=== PATIENT | male | born 1945 | race Caucasian/White ===

== ENCOUNTER 2017-11-04 11:04 | Emergency (ER) | payer OTHER ==
[2017-11-04 11:18] VITALS: TEMP 97.1
--- NOTE | 2017-11-04 11:47 | ED ---
General Adult HPI - General Chief complaint: Shortness of Breath Stated complaint: Difficulty Breathing Time Seen by Provider: 11/04/17 11:24 Source: patient, RN notes reviewed Mode of arrival: ambulatory Limitations: no limitations - History of Present Illness Initial comments: 72-year-old male history of hypertension presenting for evaluation of dyspnea. Patient was diagnosed with pneumonia approximately 6 days ago, he was started on antibiotics and has failed to improve. He does report a mild cough although his chief complaint is dyspnea. He has had some central chest tightness and belching associated with this. Denies fever or chills. Denies URI symptoms. His mild cough is nonproductive. Denies lower extremity swelling or calf tenderness. Patient has remote history of tobacco use, states he quit approximately 15 years ago. No history of asthma or COPD. No history of CAD or PE - Related Data Home Medications Medication Instructions Recorded Confirmed Amoxic-Pot Clav 875-125Mg 1 tab PO Q12HR 11/04/17 11/04/17 [Augmentin 875-125] predniSONE 20 mg PO DAILY 11/04/17 11/04/17 Previous Rx's Medication Instructions Recorded Albuterol Inhaler [Ventolin Hfa 1 - 2 puff INHALATION Q4HR PRN #1 11/04/17 Inhaler] inhaler predniSONE 50 mg PO DAILY #5 tab 11/04/17 Allergies Allergy/AdvReac Type Severity Reaction Status Date / Time No Known Allergies Allergy Verified 11/04/17 11:22 Review of Systems ROS Statement: Those systems with pertinent positive or pertinent negative responses have been documented in the HPI. ROS Other: All systems not noted in ROS Statement are negative. Past Medical History Past Medical History: Diabetes Mellitus, Hyperlipidemia, Hypertension History of Any Multi-Drug Resistant Organisms: None Reported Additional Past Surgical History / Comment(s): bilateral knee Past Psychological History: Panic Disorder Smoking Status: Former smoker Past Alcohol Use History: Occasional Past Drug Use History: None Reported General Exam Limitations: no limitations General appearance: alert, in no apparent distress Head exam: Present: atraumatic, normocephalic Eye exam: Present: normal appearance, PERRL, EOMI ENT exam: Present: normal exam Neck exam: Present: normal inspection. Absent: tenderness, meningismus Respiratory exam: Present: normal lung sounds bilaterally, other (No wheezing, patient does have bronchospastic cough). Absent: respiratory distress, wheezes Cardiovascular Exam: Present: regular rate, normal rhythm GI/Abdominal exam: Present: soft. Absent: distended, tenderness, guarding Neurological exam: Present: alert, oriented X3, CN II-XII intact. Absent: motor sensory deficit Psychiatric exam: Present: normal affect, normal mood Skin exam: Present: warm, dry, intact. Absent: cyanosis, diaphoretic Course Vital Signs 11/04/17 11/04/17 11/04/17 11:12 13:29 13:31 Temperature 97.1 F L Pulse Rate 84 78 68 Respiratory 18 16 Rate Blood Pressure 161/82 148/81 O2 Sat by Pulse 99 100 Oximetry 11/04/17 13:40 Temperature Pulse Rate 77 Respiratory Rate Blood Pressure O2 Sat by Pulse Oximetry EKG Findings - EKG Comments: EKG Findings:: EKG: Normal sinus rhythm, left axis deviation, LVH, ventricular rate of 85, NM interval 152, QRS duration 74, QTC 421, no ST segment elevation or depression Medical Decision Making - Medical Decision Making 72-year-old male presenting with dyspnea and mild cough. Patient has no formal diagnosis COPD or asthma, however he was a long-time heavy smoker, quit about 15 years ago. On exam lungs are clear with bronchospastic cough. EKG shows no definitive signs of ischemia, workup including CBC, CMP, troponin BMP is unremarkable, d-dimer is mildly elevated at 0.51, there is concern for PE, CT angiography is obtained this is negative for pulmonary embolism. Chest x-ray shows no focal pneumonia, there is some hyperinflation consistent with COPD. I do believe most the patient's symptoms are related to his previous tobacco use and an episode of bronchitis, however the central chest tightness is concerning , I would prefer the patient be observed for cardiology evaluations show cardiac enzymes, he declines stating he would prefer outpatient management he will return with any worsening or changing chest pain. He is given a course of steroids and albuterol, he will complete his antibiotic course. - Lab Data Result diagrams: 11/04/17 12:00 11/04/17 12:00 Lab Results 11/04/17 11/04/17 11/04/17 Range/Units 12:00 12:00 12:00 WBC 8.6 (3.8-10.6) k/uL RBC 4.96 (4.30-5.90) m/uL Hgb 14.5 (13.0-17.5) gm/dL Hct 42.1 (39.0-53.0) % MCV 85.0 (80.0-100.0) fL MCH 29.3 (25.0-35.0) pg MCHC 34.5 (31.0-37.0) g/dL RDW 13.5 (11.5-15.5) % Plt Count 235 (150-450) k/uL Neutrophils % 67 % Lymphocytes % 19 % Monocytes % 7 % Eosinophils % 6 % Basophils % 1 % Neutrophils # 5.8 (1.3-7.7) k/uL Lymphocytes # 1.6 (1.0-4.8) k/uL Monocytes # 0.6 (0-1.0) k/uL Eosinophils # 0.5 (0-0.7) k/uL Basophils # 0.1 (0-0.2) k/uL PT (9.0-12.0) sec INR (<1.2) APTT (22.0-30.0) sec D-Dimer (<0.60) mg/L FEU Sodium 141 (137-145) mmol/L Potassium 4.4 (3.5-5.1) mmol/L Chloride 101 (98-107) mmol/L Carbon Dioxide 27 (22-30) mmol/L Anion Gap 13 mmol/L BUN 26 H (9-20) mg/dL Creatinine 1.01 (0.66-1.25) mg/dL Est GFR (CKD-EPI)AfAm 86 (>60 ml/min/1.73 sqM) Est GFR (CKD-EPI)NonAf 74 (>60 ml/min/1.73 sqM) Glucose 206 H (74-99) mg/dL Calcium 9.5 (8.4-10.2) mg/dL Magnesium 1.7 (1.6-2.3) mg/dL Total Bilirubin 0.4 (0.2-1.3) mg/dL AST 21 (17-59) U/L ALT 23 (21-72) U/L Alkaline Phosphatase 70 (38-126) U/L Total Creatine Kinase 58 (55-170) U/L CK-MB (CK-2) 1.4 (0.0-2.4) ng/mL CK-MB (CK-2) Rel Index 2.4 Troponin I <0.012 (0.000-0.034) ng/mL NT-Pro-B Natriuret Pep pg/mL Total Protein 7.2 (6.3-8.2) g/dL Albumin 4.2 (3.5-5.0) g/dL 11/04/17 11/04/17 Range/Units 12:00 12:00 WBC (3.8-10.6) k/uL RBC (4.30-5.90) m/uL Hgb (13.0-17.5) gm/dL Hct (39.0-53.0) % MCV (80.0-100.0) fL MCH (25.0-35.0) pg MCHC (31.0-37.0) g/dL RDW (11.5-15.5) % Plt Count (150-450) k/uL Neutrophils % % Lymphocytes % % Monocytes % % Eosinophils % % Basophils % % Neutrophils # (1.3-7.7) k/uL Lymphocytes # (1.0-4.8) k/uL Monocytes # (0-1.0) k/uL Eosinophils # (0-0.7) k/uL Basophils # (0-0.2) k/uL PT 10.0 (9.0-12.0) sec INR 1.0 (<1.2) APTT 21.9 L (22.0-30.0) sec D-Dimer 0.51 (<0.60) mg/L FEU Sodium (137-145) mmol/L Potassium (3.5-5.1) mmol/L Chloride (98-107) mmol/L Carbon Dioxide (22-30) mmol/L Anion Gap mmol/L BUN (9-20) mg/dL Creatinine (0.66-1.25) mg/dL Est GFR (CKD-EPI)AfAm (>60 ml/min/1.73 sqM) Est GFR (CKD-EPI)NonAf (>60 ml/min/1.73 sqM) Glucose (74-99) mg/dL Calcium (8.4-10.2) mg/dL Magnesium (1.6-2.3) mg/dL Total Bilirubin (0.2-1.3) mg/dL AST (17-59) U/L ALT (21-72) U/L Alkaline Phosphatase (38-126) U/L Total Creatine Kinase (55-170) U/L CK-MB (CK-2) (0.0-2.4) ng/mL CK-MB (CK-2) Rel Index Troponin I (0.000-0.034) ng/mL NT-Pro-B Natriuret Pep 42 pg/mL Total Protein (6.3-8.2) g/dL Albumin (3.5-5.0) g/dL Disposition Clinical Impression: Acute bronchitis Disposition: HOME SELF-CARE Condition: Fair Instructions: Acute Bronchitis (ED) Prescriptions: Albuterol Inhaler [Ventolin Hfa Inhaler] 1 - 2 puff INHALATION Q4HR PRN #1 inhaler PRN Reason: Shortness Of Breath predniSONE 50 mg PO DAILY #5 tab Referrals: [facility],Clinic [Primary Care Provider] - 1-2 days Time of Disposition: 14:53
[2017-11-04 12:11] LABS: Basophils # (A) 0.1 k/uL (0-0.2); Basophils % (A) 1 %; Eosinophils # (A) 0.5 k/uL (0-0.7); Eosinophils % (A) 6 %; HCT 42.1 % (39.0-53.0); HGB 14.5 gm/dL (13.0-17.5); Lymphocytes # (A) 1.6 k/uL (1.0-4.8); Lymphocytes % (A) 19 %; MCH 29.3 pg (25.0-35.0); MCHC 34.5 g/dL (31.0-37.0); Mean Platelet Volume 7.6; Monocytes # (A) 0.6 k/uL (0-1.0); Monocytes % (A) 7 %; Neutrophils # (A) 5.8 k/uL (1.3-7.7); Neutrophils % (A) 67 %; Platelet Count 235 k/uL (150-450); RBC 4.96 m/uL (4.30-5.90); RDW 13.5 % (11.5-15.5); WBC 8.6 k/uL (3.8-10.6)
--- NOTE | 2017-11-04 12:16 | XR ---
EXAMINATION TYPE: XR chest 2V DATE OF EXAM: 11/04/2017 COMPARISON: NONE HISTORY: Difficulty breathing, shortness of breath TECHNIQUE: Frontal and lateral views of the chest are obtained. FINDINGS: There is no focal air space opacity, pleural effusion, or pneumothorax seen. The cardiac silhouette size is within normal limits. There are overlying cardiac leads. Suspect a spinal curvatur e may be present. Prominent lung volumes may be indicative of underlying COPD. The osseous structures are intact. IMPRESSION: No acute cardiopulmonary process.
[2017-11-04 12:19] LABS: Albumin 4.2 g/dL (3.5-5.0); Calcium 9.5 mg/dL (8.4-10.2); Magnesium 1.7 mg/dL (1.6-2.3); Potassium 4.4 mmol/L (3.5-5.1); Total Bilirubin 0.4 mg/dL (0.2-1.3); Total Protein 7.2 g/dL (6.3-8.2)
[2017-11-04 12:30] LABS: Creatine Kinase 58 U/L (55-170); D-Dimer 0.51 mg/L FEU (<0.60)
[2017-11-04 12:40] LABS: Partial Thromboplastin Time 21.9 sec (22.0-30.0)
[2017-11-04 12:43] LABS: Creatine Kinase MB 1.4 ng/mL (0.0-2.4); Troponin I <0.012 ng/mL (0.000-0.034)
[2017-11-04] MEDS ORDERED: DEXAMETHASONE SOD PHOSPHATE 10 MG/ML 1 ML VIAL IV STA (12:43)
[2017-11-04] MEDS ORDERED: IPRATROPIUM-ALBUTEROL 3 ML NEB INHALATION STA (12:43)
[2017-11-04] MEDS ORDERED: RX INFO: IV CONTRAST WAS GIVEN 1 EACH MISC MISCELLANE PRN (13:08)
[2017-11-04 13:30] VITALS: RESP 16
--- NOTE | 2017-11-04 14:33 | CT ---
EXAMINATION TYPE: CT angio chest DATE OF EXAM: 11/04/2017 COMPARISON: NONE HISTORY: Patient complains of difficulty breathing. Chest pain per order CT DLP: 552 mGycm. Automated Exposure Control for Dose Reduction was Utilized. CONTRAST: CTA scan of the thorax is performed with IV Contrast, patient injected with 100 mL of Isovue 370, pul monary embolism protocol. MIP Images are created on CT scanner and reviewed. FINDINGS: LUNGS: There is posterior medial left basilar linear scarring. There is mild biapical pleural/parench ymal scarring. There is no suspicious consolidation or groundglass opacity. There is no pleural effus ion or pneumothorax seen bilaterally. Tracheobronchial tree is patent. MEDIASTINUM: There is satisfactory enhancement of the pulmonary artery and its branches, there is no CT evidence for pulmonary embolism. There are no greater than 1 cm hilar or mediastinal lymph nodes. No cardiomegaly or pericardial effusion is seen. There is coronary artery calcification is seen wh ich is noted marker for coronary artery disease. This is fairly severe in the visualized LAD. Ascendi ng aorta measures up to 3.9 cm diameter axial image 73. There is moderate mixed plaque in the aortic arch extending into descending thoracic aorta where more moderate to severe peripheral noncalcified p laque is present. OTHER: Dextroconvex scoliosis centered in the midthoracic spine is present. There is moderate multile jena anterior and lateral spurring in the thoracic spine. Slight low dense nodular thickening to both adrenal glands favors benign hyperplasia IMPRESSION: No CT evidence for acute pulmonary embolism. No suspicious acute pulmonary process.
[2017-11-04 15:19] VITALS: BP 149/80; PULSE 85
== END 2017-11-04 15:29 | disposition home or self-care (01) ==
LOC: EC 11:04
DX: J20.9 Acute bronchitis, unspecified (principal); Z87.891 Personal history of nicotine dependence; Z79.899 Other long term (current) drug therapy
CPT/HCPCS: 36415; 94640; 93005; 85379; 83880; 80053; 82550; 82553; 83735; 84484; 85025; 85610; 85730; 71046; 71275; 99285; 96374; J1100; Q9967

== ENCOUNTER 2018-10-04 08:18 | Emergency (ER) | payer OTHER ==
[2018-10-04 08:28] VITALS: PULSE 86; RESP 18; TEMP 98
--- NOTE | 2018-10-04 08:59 | ED ---
General Adult HPI - General Chief complaint: Neuro Symptoms/Deficit Stated complaint: Arm/Hand Numbness, Confused Time Seen by Provider: 10/04/18 08:40 Source: patient, RN notes reviewed Mode of arrival: wheelchair Limitations: no limitations - History of Present Illness Initial comments: Patient is a pleasant 73-year-old male presenting to the emergency department with left arm problems. Patient last known well was therefore went to bed last night. Patient was somewhat restless throughout the night. Patient awoke around 7:30 this morning and had difficulty using his left arm. Patient also had some difficulty with walking and did feel confused. Symptoms have now resolved and patient is symptom-free. No history of similar symptoms previousl y. No headache. - Related Data Home Medications Medication Instructions Recorded Confirmed Cyanocobalamin (Vitamin B-12) 1,000 mcg PO DAILY 10/04/18 10/04/18 [Vitamin B-12] Lisinopril [Zestril] 20 mg PO DAILY 10/04/18 10/04/18 metFORMIN HCL [Glucophage] 500 mg PO BID 10/04/18 10/04/18 Allergies Allergy/AdvReac Type Severity Reaction Status Date / Time No Known Allergies Allergy Verified 10/04/18 08:42 Review of Systems ROS Statement: Those systems with pertinent positive or pertinent negative responses have been documented in the HPI. ROS Other: All systems not noted in ROS Statement are negative. Constitutional: Denies: fever Eyes: Denies: eye pain ENT: Denies: ear pain Respiratory: Denies: cough Cardiovascular: Denies: chest pain Endocrine: Denies: fatigue Gastrointestinal: Denies: abdominal pain Genitourinary: Denies: dysuria Musculoskeletal: Denies: back pain Skin: Denies: rash Neurological: Reports: as per HPI, weakness, confusion. Denies: headache Past Medical History Past Medical History: Diabetes Mellitus, Hyperlipidemia, Hypertension History of Any Multi-Drug Resistant Organisms: None Reported Additional Past Surgical History / Comment(s): bilateral knee Past Psychological History: Panic Disorder Smoking Status: Former smoker Past Alcohol Use History: Occasional Past Drug Use History: None Reported General Exam Limitations: no limitations General appearance: alert, in no apparent distress Head exam: Present: atraumatic Eye exam: Present: normal appearance, PERRL, EOMI ENT exam: Present: normal oropharynx Neck exam: Present: normal inspection Respiratory exam: Present: normal lung sounds bilaterally Cardiovascular Exam: Present: regular rate, normal rhythm GI/Abdominal exam: Present: soft. Absent: tenderness Extremities exam: Present: normal inspection. Absent: pedal edema, calf tenderness Neurological exam: Present: alert, oriented X3, CN II-XII intact. Absent: motor sensory deficit Expanded Neurological exam: Present: protecting the airway Patient oriented to: Present: person, place, time Speech: Present: fluid speech Cranial nerves: EOM's Intact: Normal, Facial Sensation: Normal Cerebellar function: Finger to Nose: Normal Sensory exam: Upper Extremity Light Touch: Normal, Lower Extremity Light Touch: Normal Motor strength exam: RUE: 5, LUE: 5, RLE: 5, LLE: 5 Eye Response: (4) open spontaneously Motor Response: (6) obeys commands Verbal Response: (5) oriented Psychiatric exam: Present: normal affect, normal mood Skin exam: Present: normal color Course Vital Signs 10/04/18 08:23 Temperature 98.0 F Pulse Rate 86 Respiratory 18 Rate Blood Pressure 222/100 O2 Sat by Pulse 98 Oximetry EKG Findings - EKG Comments: EKG Findings:: Normal sinus rhythm 78. [place] 156. QRS 78. QT 364. QTC 414. Left axis. Normal QRS. No acute ST change. Medical Decision Making - Medical Decision Making Patient reevaluated and resting comfortably in bed. Patient remained symptom- free. Case was discussed with Dr. Nicholas at [facility], who will accept transfer. - Lab Data Result diagrams: 10/04/18 08:40 10/04/18 08:40 Lab Results 10/04/18 10/04/18 10/04/18 Range/Units 08:40 08:40 08:40 WBC 7.7 (3.8-10.6) k/uL RBC 4.87 (4.30-5.90) m/uL Hgb 14.3 (13.0-17.5) gm/dL Hct 41.9 (39.0-53.0) % MCV 86.0 (80.0-100.0) fL MCH 29.4 (25.0-35.0) pg MCHC 34.1 (31.0-37.0) g/dL RDW 13.3 (11.5-15.5) % Plt Count 186 (150-450) k/uL Neutrophils % 62 % Lymphocytes % 23 % Monocytes % 7 % Eosinophils % 5 % Basophils % 1 % Neutrophils # 4.8 (1.3-7.7) k/uL Lymphocytes # 1.8 (1.0-4.8) k/uL Monocytes # 0.5 (0-1.0) k/uL Eosinophils # 0.4 (0-0.7) k/uL Basophils # 0.1 (0-0.2) k/uL PT 9.8 (9.0-12.0) sec INR 0.9 (<1.2) APTT 22.6 (22.0-30.0) sec Sodium 137 (137-145) mmol/L Potassium 5.0 (3.5-5.1) mmol/L Chloride 105 (98-107) mmol/L Carbon Dioxide 22 (22-30) mmol/L Anion Gap 10 mmol/L BUN 31 H (9-20) mg/dL Creatinine 1.27 H (0.66-1.25) mg/dL Est GFR (CKD-EPI)AfAm 64 (>60 ml/min/1.73 sqM) Est GFR (CKD-EPI)NonAf 56 (>60 ml/min/1.73 sqM) Glucose 222 H (74-99) mg/dL Calcium 9.6 (8.4-10.2) mg/dL Total Bilirubin 0.5 (0.2-1.3) mg/dL AST 20 (17-59) U/L ALT 30 (21-72) U/L Alkaline Phosphatase 83 (38-126) U/L Troponin I (0.000-0.034) ng/mL Total Protein 7.6 (6.3-8.2) g/dL Albumin 4.3 (3.5-5.0) g/dL 10/04/18 Range/Units 08:40 WBC (3.8-10.6) k/uL RBC (4.30-5.90) m/uL Hgb (13.0-17.5) gm/dL Hct (39.0-53.0) % MCV (80.0-100.0) fL MCH (25.0-35.0) pg MCHC (31.0-37.0) g/dL RDW (11.5-15.5) % Plt Count (150-450) k/uL Neutrophils % % Lymphocytes % % Monocytes % % Eosinophils % % Basophils % % Neutrophils # (1.3-7.7) k/uL Lymphocytes # (1.0-4.8) k/uL Monocytes # (0-1.0) k/uL Eosinophils # (0-0.7) k/uL Basophils # (0-0.2) k/uL PT (9.0-12.0) sec INR (<1.2) APTT (22.0-30.0) sec Sodium (137-145) mmol/L Potassium (3.5-5.1) mmol/L Chloride (98-107) mmol/L Carbon Dioxide (22-30) mmol/L Anion Gap mmol/L BUN (9-20) mg/dL Creatinine (0.66-1.25) mg/dL Est GFR (CKD-EPI)AfAm (>60 ml/min/1.73 sqM) Est GFR (CKD-EPI)NonAf (>60 ml/min/1.73 sqM) Glucose (74-99) mg/dL Calcium (8.4-10.2) mg/dL Total Bilirubin (0.2-1.3) mg/dL AST (17-59) U/L ALT (21-72) U/L Alkaline Phosphatase (38-126) U/L Troponin I <0.012 (0.000-0.034) ng/mL Total Protein (6.3-8.2) g/dL Albumin (3.5-5.0) g/dL - Radiology Data Radiology results: report reviewed (Computed tomography scan of the head reveals no acute process), image reviewed (Chest x-ray shows no acute process) Disposition Clinical Impression: Transient cerebral ischemia Disposition: OTHER INSTITUTION NOT DEFINED Is patient prescribed a controlled substance at d/c from ED?: No Referrals: [facility],Clinic [Primary Care Provider] - 1-2 days Time of Disposition: 10:25 - Out of Hospital Transfer - Req. Specs Out of Hospital Transfer - Requested Specifics: Other Emergency Center
[2018-10-04 09:13] LABS: Basophils # (A) 0.1 k/uL (0-0.2); Basophils % (A) 1 %; Eosinophils # (A) 0.4 k/uL (0-0.7); Eosinophils % (A) 5 %; HCT 41.9 % (39.0-53.0); HGB 14.3 gm/dL (13.0-17.5); Lymphocytes # (A) 1.8 k/uL (1.0-4.8); Lymphocytes % (A) 23 %; MCH 29.4 pg (25.0-35.0); MCHC 34.1 g/dL (31.0-37.0); Mean Platelet Volume 7.6; Monocytes # (A) 0.5 k/uL (0-1.0); Monocytes % (A) 7 %; Neutrophils # (A) 4.8 k/uL (1.3-7.7); Neutrophils % (A) 62 %; Platelet Count 186 k/uL (150-450); RBC 4.87 m/uL (4.30-5.90); RDW 13.3 % (11.5-15.5); WBC 7.7 k/uL (3.8-10.6)
[2018-10-04 09:22] LABS: INR 0.9 (<1.2); Partial Thromboplastin Time 22.6 sec (22.0-30.0); Prothrombin Time 9.8 sec (9.0-12.0)
--- NOTE | 2018-10-04 09:22 | CT ---
EXAMINATION TYPE: CT brain wo con DATE OF EXAM: 10/04/2018 COMPARISON: None HISTORY: left side weakness CT DLP: 1016.[address] of the brain was performed. The ventricles, basal cisterns and sulci overlying the cerebral convexities demonstrate mild enlargem ent. There is no evidence for intracranial hemorrhage or sulcal effacement. There is decreased attenuation about the periventricular white matter and deep white matter of both c erebral hemispheres, compatible with chronic small vessel ischemia. Differential diagnosis does inclu de demyelination. No mass effects are seen.No midline shift. Osseous calvarium is intact. If symptoms persist consider MRI. IMPRESSION: 1. Age related atrophic and chronic small vessel ischemic change without acute intracranial process s een at this time.
[2018-10-04 09:26] LABS: Albumin 4.3 g/dL (3.5-5.0); Calcium 9.6 mg/dL (8.4-10.2); Total Bilirubin 0.5 mg/dL (0.2-1.3); Total Protein 7.6 g/dL (6.3-8.2)
--- NOTE | 2018-10-04 09:30 | XR ---
EXAMINATION TYPE: XR chest 2V DATE OF EXAM: 10/04/2018 COMPARISON: Prior chest x-ray 11/04/2017 HISTORY: Altered mental status TECHNIQUE: Frontal and lateral views of the chest are obtained. FINDINGS: There is no focal air space opacity, pleural effusion, or pneumothorax seen. The cardiac silhouette size is within normal limits. The osseous structures are intact. The aorta is dense. IMPRESSION: No acute cardiopulmonary process.
[2018-10-04] MEDS ORDERED: ASPIRIN 81 MG PO STA (10:44)
[2018-10-04 11:56] VITALS: BP 170/93
== END 2018-10-04 11:55 | disposition short-term general hospital (02) ==
LOC: EC 08:18
DX: G45.9 Transient cerebral ischemic attack, unspecified (principal); E11.9 Type 2 diabetes mellitus without complications; I10 Essential (primary) hypertension; Z79.84 Long term (current) use of oral hypoglycemic drugs; Z79.899 Other long term (current) drug therapy; Z87.891 Personal history of nicotine dependence
CPT/HCPCS: 36415; 70450; 71046; 80053; 84484; 85025; 85610; 85730; 93005; 99285

== ENCOUNTER 2018-12-21 18:36 | Emergency (ER) | payer OTHER ==
[2018-12-21 19:53] VITALS: RESP 18
[2018-12-21] MEDS ORDERED: CEPHALEXIN 500MG STARTER PACK 4 CAP BTL PO STA (22:01)
--- NOTE | 2018-12-21 22:03 | ED ---
Skin/Abscess/FB HPI - General Chief complaint: Skin/Abscess/Foreign Body Stated complaint: Infection Time Seen by Provider: 12/21/18 21:39 Source: patient Mode of arrival: ambulatory Limitations: no limitations - History of Present Illness Initial comments: 73-year-old male patient presents to the emergency department today for evaluation of redness and discomfort to a right neck incision. Patient states approximately 6 weeks ago he had a right carotid endarterectomy after having a stroke. Patient states 2 days ago he started noticing a prickling sensation to the incision. States his been monitoring it does seem to be Becoming more red. Denies any swelling or drainage from the area. Denies any difficulty swallowing. Denies any fever or chills with this. Patient states he missed his last appointment with his surgeon but does have an appointment with his primary care physician on Thursday. He denies any dizziness or weakness. Patient denies any recent rash, shortness breath, chest pain, abdominal pain, nausea, vomiting, diarrhea, constipation, back pain, numbness, tingling, hematuria, dysuria, urinary urgency, urinary frequency, headache, visual changes, or any other complaints. - Related Data Home Medications Medication Instructions Recorded Confirmed Cyanocobalamin (Vitamin B-12) 1,000 mcg PO DAILY 10/04/18 10/04/18 [Vitamin B-12] Lisinopril [Zestril] 20 mg PO DAILY 10/04/18 10/04/18 metFORMIN HCL [Glucophage] 500 mg PO BID 10/04/18 10/04/18 Previous Rx's Medication Instructions Recorded Cephalexin [Keflex] 500 mg PO Q6HR #40 cap 12/21/18 Allergies Allergy/AdvReac Type Severity Reaction Status Date / Time No Known Allergies Allergy Verified 12/21/18 19:53 Review of Systems ROS Statement: Those systems with pertinent positive or pertinent negative responses have been documented in the HPI. ROS Other: All systems not noted in ROS Statement are negative. Past Medical History Past Medical History: CVA/TIA, Diabetes Mellitus, Hyperlipidemia, Hypertension History of Any Multi-Drug Resistant Organisms: None Reported Additional Past Surgical History / Comment(s): bilateral knee, right carotid due to CVA Past Psychological History: Panic Disorder Smoking Status: Former smoker Past Alcohol Use History: Occasional Past Drug Use History: None Reported General Exam Limitations: no limitations General appearance: alert, in no apparent distress, other (Physical well- developed, well-nourished elderly male patient in no acute distress. Vital signs upon presentation are temperature 98.1F, pulse 94, respirations 18, blood pressure 151/78, pulse ox 100% on room air.) Eye exam: Present: normal appearance, PERRL, EOMI. Absent: scleral icterus, conjunctival injection, periorbital swelling ENT exam: Present: normal exam, normal oropharynx, mucous membranes moist Neck exam: Present: other (Patient has well approximated incision to the right lateral neck. There is mild surrounding erythema. No drainage. No tenderness. No swelling noted.) Respiratory exam: Present: normal lung sounds bilaterally. Absent: respiratory distress, wheezes, rales, rhonchi, stridor Cardiovascular Exam: Present: regular rate, normal rhythm, normal heart sounds. Absent: systolic murmur, diastolic murmur, rubs, gallop, clicks Neurological exam: Present: alert, oriented X3, CN II-XII intact Psychiatric exam: Present: normal affect, normal mood Skin exam: Present: warm, dry, intact, normal color. Absent: rash Course Vital Signs 12/21/18 12/21/18 19:46 22:13 Temperature 98.1 F 98.2 F Pulse Rate 94 87 Respiratory 18 18 Rate Blood Pressure 151/78 141/93 O2 Sat by Pulse 100 100 Oximetry Medical Decision Making - Medical Decision Making 73-year-old male patient presented to the emergency department today for evaluation of redness and discomfort to the right neck incision. Physical examination did reveal well approximated right lateral neck incision. No drainage. No swelling. There was some mild surrounding erythema. Patient is afebrile, vital signs are normal. We will treat for possible cellulitis with Keflex. He is instructed to follow-up with his primary care physician or his surgeon for recheck in 1-2 days. Return parameters were discussed in detail. He verbalizes understanding and agrees with this plan. Disposition Clinical Impression: Infection of superficial incisional surgical site after procedure Disposition: HOME SELF-CARE Condition: Good Instructions (If sedation given, give patient instructions): Cellulitis (ED) Additional Instructions: Complete antibiotic prescription in full. Follow up with your surgeon or primary care physician in 1-2 days. Return to the emergency department for any new, worsening, or concerning symptoms. Prescriptions: Cephalexin [Keflex] 500 mg PO Q6HR #40 cap Is patient prescribed a controlled substance at d/c from ED?: No Referrals: [facility],Clinic [Primary Care Provider] - 1-2 days Time of Disposition: 22:02
[2018-12-21 22:15] VITALS: BP 141/93; PULSE 87; TEMP 98.2
== END 2018-12-21 22:17 | disposition home or self-care (01) ==
LOC: EC 18:36
DX: T81.41XA Infection following a procedure, superficial incisional surgical site, initial encounter (principal); E11.9 Type 2 diabetes mellitus without complications; I10 Essential (primary) hypertension; Z79.84 Long term (current) use of oral hypoglycemic drugs; Z79.899 Other long term (current) drug therapy; Z87.891 Personal history of nicotine dependence; Z86.73 Personal history of transient ischemic attack (TIA), and cerebral infarction without residual deficits; Z98.890 Other specified postprocedural states
CPT/HCPCS: 99283

== ENCOUNTER → 2019-02-23 | Outpatient (CLI) | payer OTHER ==
--- NOTE | 2019-03-02 11:14 | P.ARTDOP ---
Arterial Doppler LOWER EXTREMITY ARTERIAL DOPPLER: DATE OF SERVICE: 02/23/2019 Reason for study: Bilateral calf claudication. Doppler waveforms: Multiphasic bilaterally throughout. Pulse volume recording: []. Pressure gradients: Below the knee on the right. Ankle-brachial indices: 0.82 on the right and 0.96 on the left. Toe pressures: [] on the right, [] on the left Impression: Mild right fem-pop disease and normal on the left.
== END | disposition home or self-care (01) ==
LOC: RADUSWWP 12:02
DX: I87.8 Other specified disorders of veins (principal)
CPT/HCPCS: 93922

== ENCOUNTER → 2019-06-02 | Outpatient (CLI) | payer OTHER ==
--- NOTE | 2019-06-02 12:57 | US ---
EXAMINATION TYPE: US kidneys/renal and bladder DATE OF EXAM: 06/02/2019 COMPARISON: NONE CLINICAL HISTORY: N18.3 Chronic Kidney Disease Stage III. CKD stage 3 EXAM MEASUREMENTS: Right Kidney: 8.9 x 5.4 x 4.9 cm Left Kidney: 10.2 x 5.2 x 5.3 cm Right Kidney: measures small in size, 1.7 x 2.2 x 1.6cm isoechoic area mid pole, probably prominent c olumn of blayne, 1.0cm cortical cyst mid pole Left Kidney: 0.4cm echogenic focus mid pole, 1.7 x 1.5 x 1.5cm exophytic cyst superior pole Bladder: not fully distended Bilateral Jets seen: right jet not seen There is no evidence for hydronephrosis at this point in time. No nephrolithiasis is seen. No chloe s are identified. The urinary bladder is anechoic. Bilateral ureteral jets are seen. IMPRESSION: 1. Probable right renal, Blayne however this there is vascular and isoechoic solid renal mass is a po ssibility. CT with contrast would be recommended. If this patient cannot undergo CT abdomen w con MRI with contrast would be recommended pending GFR. 2. Benign-appearing 1.7 cm exophytic left renal cyst and 4 mm nonobstructing left renal calculus.
== END | disposition home or self-care (01) ==
LOC: RADUSWWP 12:11
PROVIDERS: ATTEND Internal Medicine
DX: N28.1 Cyst of kidney, acquired (principal); N20.0 Calculus of kidney; N18.3 Chronic kidney disease, stage 3 (moderate)
CPT/HCPCS: 76770

== ENCOUNTER → 2019-10-11 | Outpatient (CLI) | payer OTHER ==
--- NOTE | 2019-10-11 10:56 | CT ---
EXAMINATION TYPE: CT abdomen pelvis wo con DATE OF EXAM: 10/11/2019 COMPARISON: Renal ultrasound dated 06/02/2019 HISTORY: Prostate cancer CT DLP: 954 mGycm Automated exposure control for dose reduction was used. TECHNIQUE: Helical acquisition of images was performed from the lung bases through the pelvis. FINDINGS: Evaluation of the hollow and solid viscera is limited without contrast. LUNG BASES: Minimal atelectasis of the lung bases LIVER/GB: Unremarkable unenhanced morphology of the liver. No cholelithiasis present that is radiopaq ue on CT. PANCREAS: No significant abnormality is seen. SPLEEN: No splenomegaly. ADRENALS: Very mild uniform nodularity of the bilateral adrenal glands, likely on the basis of adrena l gland hyperplasia. KIDNEYS: The previously seen probable column of Blayne of the right kidney is suboptimally evaluated without contrast. Nonobstructing right lower poler 4 mm calculus is seen. 2 mm left midpole nonobstru cting renal calculus. Exophytic left midpole 9 mm renal cyst. Minimal nonspecific bilateral perinephr ic fat stranding. No hydronephrosis of either kidney. FREE AIR: No free air is visualized ADENOPATHY: No greater than 1 cm short axis lymph node in the abdomen nor pelvis. REPRODUCTIVE ORGANS: Prostate gland is heterogenous and enlarged measuring 5.6 cm in transverse dimen michelle. OSSEOUS STRUCTURES: Moderate to severe arthropathy of the bilateral hips. Mild multilevel degenerati ve change of the spine. There are few very punctate sclerotic foci of the pelvis marked on image 67 i n the right iliac bone, image 62 in the left iliac bone, and image 60 in the right iliac bone that co uld represent small bone islands or less likely metastasis. Moderate overall degenerative change of t he spine is seen. BOWEL: There is diffuse thickening of the sigmoid colon with numerous colonic diverticula and no per icolonic fat stranding. Few epiploic appendages without fat stranding are seen of the anterior sigmoi d colon on image 61 and 60. Oral contrast does not progress into the majority the colon, limiting regine luation. Appendix is retrocecal, air-filled and within normal limits of size. No dilated large or sma ll bowel. OTHER: The right inguinal ring is fat filled and patulous. Moderate atherosclerosis of the abdominal aorta and its branches. Small fat filled periumbilical hernia. IMPRESSION: 1. NO DEFINITIVE EVIDENCE OF METASTASIS IN THE ABDOMEN OR PELVIS. NO ADENOPATHY. THERE ARE FEW VERY P UNCTATE 1 TO 2 MM SCLEROTIC FOCI OF THE ILIAC BONES (3 IN NUMBER) THAT MAY REPRESENT SMALL BONE ISLAN DS OR LEFT LIKELY VERY EARLY METASTASIS. NO PRIOR IMAGING AVAILABLE FOR COMPARISON OF STABILITY. 2. DIFFUSE THICKENING OF THE SIGMOID COLON THAT COULD BE ON THE BASIS OF CHRONIC DIVERTICULITIS/COLIT IS HOWEVER COLONOSCOPY IS RECOMMENDED IF NOT RECENTLY PERFORMED TO EXCLUDE SUBMUCOSAL NEOPLASM. 3. THE PREVIOUSLY SEEN PROBABLE PROMINENT, BLAYNE IN THE RIGHT KIDNEY ON THE ULTRASOUND OF 06/02/2019 IS SUBOPTIMALLY EVALUATED WITHOUT CONTRAST. BILATERAL NONOBSTRUCTING RENAL CALCULI AND BENIGN-APPEARI NG LEFT RENAL CYSTS ARE SEEN.
--- NOTE | 2019-10-11 14:47 | NM ---
EXAMINATION TYPE: NM bone scan whole body DATE OF EXAM: 10/11/2019 COMPARISON: CT same date HISTORY: Prostate carcinoma Delayed whole-body scanning was performed following the injection of 23.8 mCi Tc 99m MDP. Images acq uired 4.5 hours post injection. FINDINGS: Soft tissue uptake is normal. Uptake within the feet, ankles, knees, wrists, elbows, shoulders, khan oclavicular joints, hips, spine is likely degenerative. No areas of abnormal increased or decreased r adiopharmaceutical uptake to suggest metastasis. IMPRESSION: Arthropathy changes. Degenerative disc changes. No evident metastasis.
== END | disposition home or self-care (01) ==
LOC: RADNMMAIN 08:55
PROVIDERS: ATTEND Urology
DX: N28.1 Cyst of kidney, acquired (principal); N20.0 Calculus of kidney; K57.32 Diverticulitis of large intestine without perforation or abscess without bleeding; C61 Malignant neoplasm of prostate
CPT/HCPCS: 82565; 84520; 74176; 36415; 78306; A9503

== ENCOUNTER → 2020-02-09 | Outpatient (CLI) | payer OTHER ==
[2020-02-09 13:01] LABS: Basophils # (A) 0.1 k/uL (0-0.2); Basophils % (A) 1 %; Eosinophils # (A) 0.5 k/uL (0-0.7); Eosinophils % (A) 7 %; HCT 40.2 % (39.0-53.0); HGB 12.8 gm/dL (13.0-17.5); Lymphocytes # (A) 1.5 k/uL (1.0-4.8); Lymphocytes % (A) 20 %; MCH 27.8 pg (25.0-35.0); MCHC 31.9 g/dL (31.0-37.0); MCV 87.1 fL (80.0-100.0); Mean Platelet Volume 8.5; Monocytes # (A) 0.4 k/uL (0-1.0); Monocytes % (A) 5 %; Neutrophils # (A) 4.9 k/uL (1.3-7.7); Neutrophils % (A) 65 %; Platelet Count 220 k/uL (150-450); RBC 4.62 m/uL (4.30-5.90); RDW 13.3 % (11.5-15.5); WBC 7.5 k/uL (3.8-10.6)
[2020-02-09 13:15] LABS: Calcium 9.8 mg/dL (8.4-10.2)
[2020-02-09 14:11] LABS: Potassium 6.6 mmol/L (3.5-5.1)
== END | disposition home or self-care (01) ==
LOC: LABPAT 12:11
PROVIDERS: ATTEND Urology
DX: Z01.818 Encounter for other preprocedural examination (principal); C61 Malignant neoplasm of prostate
CPT/HCPCS: 36415; 80048; 85025

== ENCOUNTER → 2020-02-10 | Outpatient (CLI) | payer OTHER ==
[2020-02-10 10:41] LABS: Basophils # (A) 0.1 k/uL (0-0.2); Basophils % (A) 1 %; Eosinophils # (A) 0.5 k/uL (0-0.7); Eosinophils % (A) 6 %; HCT 41.2 % (39.0-53.0); HGB 13.1 gm/dL (13.0-17.5); Lymphocytes # (A) 1.5 k/uL (1.0-4.8); Lymphocytes % (A) 20 %; MCH 27.7 pg (25.0-35.0); MCHC 31.8 g/dL (31.0-37.0); MCV 87.3 fL (80.0-100.0); Mean Platelet Volume 8.2; Monocytes # (A) 0.5 k/uL (0-1.0); Monocytes % (A) 6 %; Neutrophils # (A) 5.1 k/uL (1.3-7.7); Neutrophils % (A) 65 %; Platelet Count 237 k/uL (150-450); RBC 4.72 m/uL (4.30-5.90); RDW 13.4 % (11.5-15.5); WBC 7.8 k/uL (3.8-10.6)
[2020-02-10 10:53] LABS: Calcium 9.8 mg/dL (8.4-10.2); Potassium 5.7 mmol/L (3.5-5.1)
== END | disposition home or self-care (01) ==
LOC: LABPAT 09:12
PROVIDERS: ATTEND Urology
DX: Z01.818 Encounter for other preprocedural examination (principal); C61 Malignant neoplasm of prostate; E11.9 Type 2 diabetes mellitus without complications
CPT/HCPCS: 80048; 85025

== ENCOUNTER → 2020-03-01 | Day surgery (SDC) | payer OTHER ==
--- NOTE | 2020-02-09 21:30 | P.GSHP ---
History of Present Illness H&P Date: 02/09/20 Chief Complaint: Prostate cancer The patient is a 74-year-old male with a history of an elevated PSA to date back to at least May 2017. At that time was 13.88. He was evaluated by me in 09/2017. His prostate was enlarged and there was some firmness present in the left lobe of the prostate which was suspicious for prostate cancer. He declined TRUS with biopsies at that time and instead opted for no medical treatment. His PSA was 12.76 in 11/2018, 22.1 in 07/14 and 20.0 in 08/15. He was reevaluated by me at that time and scheduled to undergo TRUS with prostate. The TRUS was performed on 09/22 and at that time a 13 x 6 x 8 mm hypoechoic area was noted in the left lobe of the prostate. The prostate volume was 44 cc. 11 of 12 random biopsies showed [place] 4+3 = [address] scan of the abdomen and pelvis showed no definite evidence of metastatic disease. Bone scan showed changes suggestive of degenerative joint disease. Clinical stage [id number]. I reviewed treatment options with the patient in September and encouraged another opinion. He was evaluated by Dr. Allen in October and has elected to be treated with a combination of androgen deprivation therapy and external beam radiation therapy. He was started on Firmagon on 12/23/2019 received his second injection on 01/25/2020. He is admitted for the purpose of placement a SpaceOar implant to reduce the potential for rectal toxicity during the treatment. The procedure will be performed by . - Constitutional Constitutional: Denies chills, Denies fever - EENT Ears, nose, mouth and throat: Denies vertigo - Cardiovascular Cardiovascular: Denies edema, Denies shortness of breath - Respiratory Respiratory: Reports wheezing (Occasional) - Gastrointestinal Gastrointestinal: Denies abdominal pain, Denies diarrhea - Genitourinary (Male) Genitourinary: Denies hematuria, Denies nocturia Past Medical History Past Medical History: CVA/TIA, Diabetes Mellitus, Hyperlipidemia, Hypertension History of Any Multi-Drug Resistant Organisms: None Reported Additional Past Surgical History / Comment(s): bilateral knee, right carotid due to CVA Past Psychological History: Panic Disorder Past Alcohol Use History: Occasional Past Drug Use History: None Reported Medications and Allergies Home Medications Medication Instructions Recorded Confirmed Type Cyanocobalamin (Vitamin B-12) 1,000 mcg PO DAILY 10/04/18 10/04/18 History [Vitamin B-12] Lisinopril [Zestril] 20 mg PO DAILY 10/04/18 10/04/18 History metFORMIN HCL [Glucophage] 500 mg PO BID 10/04/18 10/04/18 History Cephalexin [Keflex] 500 mg PO Q6HR #40 cap 12/21/18 Rx Allergies Allergy/AdvReac Type Severity Reaction Status Date / Time No Known Allergies Allergy Verified 12/21/18 19:53 Surgical - Exam - General well developed, well nourished, no distress - Neck no masses, no lymphadectomy - Respiratory normal respiratory effort - Cardiovascular Rhythm: regular Abnormal Heart Sounds: no systolic murmur - Abdomen Abdomen: soft, no organomegaly - Genitourinary normal penis with no external lesions, testicles non-tender - Rectum Rectum: other (The prostate is 2+ enlarged with firmness present in the left lobe laterally.) Assessment and Plan (1) Malignant neoplasm of prostate Narrative/Plan: The patient will undergo SpaceOAR placement by Dr. Musa under general anesthesia. He is aware of the operative risks and has no further questions. Status: Acute Code(s): C61 - MALIGNANT NEOPLASM OF PROSTATE SNOMED Code(s): 139401696
[2020-02-15 10:08] VITALS: BMI 28.7
[~2020-03-01] MED LIST: DEXAMETHASONE SOD PHOSPHATE 10 MG/ML 1 ML VIAL IV ONE; GLYCOPYRROLATE 0.2 MG/ML 2 ML VIAL ONE; INSULIN ASPART (NovoLOG) 100 UNIT/ML VIAL SQ ONE; KETAMINE 10 MG/ML 20 ML VIAL ONE; LACTATED RINGERS 1,000 ML IV SCH; LIDOCAINE 1% (10MG/ML) FOR IV START INTRADERMA ONE; LIDOCAINE 2% INJ 20 MG/ML SQ ONE; MIDAZOLAM 2 MG/2 ML VIAL ONE; ONDANSETRON 4 MG/2 ML VIAL IVP ONE; ONDANSETRON 4 MG/2 ML VIAL ONE; PROPOFOL 10 MG/ML 100 ML VIAL IV ONE; fentaNYL (PF) 50 MCG/ML 2 ML AMP IV PRN; fentaNYL (PF) 50 MCG/ML 2 ML AMP ONE
[2020-03-01 07:10] LABS: Glucose,Whole Blood 196 mg/dL (75-99)
--- NOTE | 2020-03-01 09:31 | P.OP ---
Date of Procedure: 03/01/20 Preoperative Diagnosis: Adenocarcinoma of the prostate Postoperative Diagnosis: Same Procedure(s) Performed: SpaceOAR Implant Anesthesia: MAC Surgeon: Nathan Wolff Estimated Blood Loss (ml): 5 IV fluids (ml): 700 Pathology: none sent Condition: stable Disposition: PACU Indications for Procedure: The patient is a 74-year-old male with a history of an elevated PSA to date back to at least May 2017. At that time was 13.88. He was evaluated by me in 09/2017. His prostate was enlarged and there was some firmness present in the left lobe of the prostate which was suspicious for prostate cancer. He declined TRUS with biopsies at that time and instead opted for no medical treatment. His PSA was 12.76 in 11/2018, 22.1 in 07/14 and 20.0 in 08/15. He was reevaluated by me at that time and scheduled to undergo TRUS with prostate. The TRUS was per formed on 09/22 and at that time a 13 x 6 x 8 mm hypoechoic area was noted in the left lobe of the prostate. The prostate volume was 44 cc. 11 of 12 random biopsies showed [place] 4+3 = [address] scan of the abdomen and pelvis showed no definite evidence of metastatic disease. Bone scan showed changes suggestive of degenerative joint disease. Clinical stage [id number]. I reviewed treatment options with the patient in September and encouraged another opinion. He was evaluated by Dr. Allen in October and has elected to be treated with a combination of androgen deprivation therapy and external beam radiation therapy. He was started on Firmagon on 12/23/2019 received his second injection on 01/25/2020. He now comes for placement a SpaceOar implant to reduce the potential for rectal toxicity during the treatment. Operative Findings: Excellent space created between prostate and rectum. Description of Procedure: The patient was taken to the operating room and placed in the dorsolithotomy position, with his legs supported in Otilio stirrups. The external genitalia was prepped and draped sterilely. The Bruel and Kjaer transrectal ultrasound probe was placed intrarectally. The prostate was imaged. The probe was then placed within the stabilizing stand. A spinal needle was advanced under ultrasonic guidance to the level of the urogenital diaphragm, and 2% lidocaine was used to infiltrate the tissues as the needle was withdrawn. Next, the SpaceOAR needle was passed through the midline of the perineum, 1-2 cm anterior to the anal opening. The needle was slowly advanced under ultrasonic guidance until the needle tip was located within the fat plane between the prostate and rectum, at the level of the mid prostate gland. The needle was confirmed to be midline on the axial imaging. A small amount of normal saline was injected for hydrodissection. Next, the SpaceOAR components were mixed and loaded into the Y connector per protocol. The Y connector was then connected to the needle, and the components were injected slowly over a course of approximately 12 seconds. A total of 10 ml was injected. Significant distance was created between the prostate and rectum, as desired. It should be noted that at no point was there any concern of rectal perforation. The needle was withdrawn, as well as the transrectal ultrasound probe, and the procedure was terminated. The patient tolerated the procedure well and was taken to the recovery room in stable condition.
[2020-03-01 09:38] VITALS: TEMP 97
[2020-03-01 09:44] LABS: Glucose,Whole Blood 236 mg/dL (75-99)
[2020-03-01 10:40] VITALS: BP 159/80; PULSE 78; RESP 18
[2020-03-01 10:44] LABS: Glucose,Whole Blood 235 mg/dL (75-99)
== END | disposition home or self-care (01) ==
LOC: OR 06:29
PROVIDERS: ATTEND Urology
DX: C61 Malignant neoplasm of prostate (principal); I10 Essential (primary) hypertension; E11.9 Type 2 diabetes mellitus without complications; E78.5 Hyperlipidemia, unspecified; F41.0 Panic disorder [episodic paroxysmal anxiety]; Z98.890 Other specified postprocedural states; Z79.84 Long term (current) use of oral hypoglycemic drugs; Z79.02 Long term (current) use of antithrombotics/antiplatelets; Z79.899 Other long term (current) drug therapy; Z86.73 Personal history of transient ischemic attack (TIA), and cerebral infarction without residual deficits; Z96.653 Presence of artificial knee joint, bilateral
CPT/HCPCS: 84132; 55874; J2001; J2250; J1100; J0690; J2405; J3010; J2704

== ENCOUNTER → 2020-09-13 | Outpatient (CLI) | payer OTHER | END | disposition home or self-care (01) | LOC: RADUSWWP 12:14 | PROVIDERS: ATTEND Family Medicine | DX: I73.9 Peripheral vascular disease, unspecified (principal); Z88.8 Allergy status to other drugs, medicaments and biological substances | CPT/HCPCS: 93923 ==

== ENCOUNTER → 2021-06-05 | Outpatient (CLI) | payer OTHER ==
--- NOTE | 2021-06-05 16:32 | US ---
EXAMINATION TYPE: US carotid duplex BILAT DATE OF EXAM: 06/05/2021 COMPARISON: NONE CLINICAL HISTORY: 75-year-old male I65.29 Carotid stenosis. Pt states dizziness TECHNIQUE: Carotid duplex ultrasound examination. Indirect Doppler criteria was utilized. FINDINGS: EXAM MEASUREMENTS: RIGHT: Peak Systolic Velocity (PSV) cm/sec ----- Right CCA: 74.7 ----- Right ICA: 127.0 ----- Right ECA: 255.3 ICA/CCA ratio: 1.7 RIGHT: End Diastole cm/sec ----- Right CCA: 12.7 ----- Right ICA: 30.0 ----- Right ECA: 15.6 LEFT: Peak Systolic Velocity (PSV) cm/sec ----- Left CCA: 113.2 ----- Left ICA: 125.3 ----- Left ECA: 118.5 ICA/CCA ratio: 1.1 LEFT: End Diastole cm/sec ----- Left CCA: 18.0 ----- Left ICA: 30.0 ----- Left ECA: 12.7 VERTEBRALS (direction of flow): Right Vertebral: Antegrade Left Vertebral: Antegrade Rhythm: Normal [employer] Consultant notes:Soft plaque bilaterally with slightly elevated velocities bilaterally IMPRESSION: Slightly elevated proximal ICA velocities on both sides, likely secondary to mild proximal ICA stenos es. The ICA/CCA ratio and end-diastolic velocities do not clearly indicate a moderate, 50-69% stenosi s. Criteria for Assigning % of Stenosis / Diameter reduction (Estimation based on the indirect measurements of the internal carotid artery velocities (ICA PSV). 1. Normal (no stenosis)=ICA PSV < 125 cm/s: ratio < 2.0: ICA EDV<40 cm/s. 2. Less than 50% stenosis=ICA PSV < 125 cm/s: ratio < 2.0: ICA EDV<40 cm/s. 3. 50 to 69% stenosis=ICA PSV of 125 to 230 cm/s: ration 2.0 ? 4.0: ICA EDV 40-100 cm/s. 4. Greater than 70% stenosis to near occlusion= ICA PSV > 230 cm/s: ratio > 4.0: ICA EDV > 100 cm/s. 5. Near occlusion= ICA PSV velocities may be low or undetectable: variable ratio and ICA EDV. 6. Total occlusion=unable to detect flow.
== END | disposition home or self-care (01) ==
LOC: RADUSWWP 13:04
DX: I65.23 Occlusion and stenosis of bilateral carotid arteries (principal)
CPT/HCPCS: 93880

== ENCOUNTER → 2022-12-04 | Outpatient (CLI) | payer OTHER ==
--- NOTE | 2022-12-04 16:10 | US ---
EXAMINATION TYPE: US carotid duplex BILAT DATE OF EXAM: 12/04/2022 COMPARISON: NONE CLINICAL INDICATION: Male, 77 years old with history of I793; TECHNIQUE: Carotid duplex ultrasound examination. Indirect Doppler criteria was utilized. FINDINGS: EXAM MEASUREMENTS: RIGHT: Peak Systolic Velocity (PSV) cm/sec ----- Right CCA: 127 ----- Right ICA: 101 ----- Right ECA: 128.6 ICA/CCA ratio: 0.8 RIGHT: End Diastole cm/sec ----- Right CCA: 20.4 ----- Right ICA: 28.4 ----- Right ECA: 9 LEFT: Peak Systolic Velocity (PSV) cm/sec ----- Left CCA: 137.1 ----- Left ICA: 123.3 ----- Left ECA: 132.2 ICA/CCA ratio: 0.9 LEFT: End Diastole cm/sec ----- Left CCA: 22.9 ----- Left ICA: 28.8 ----- Left ECA: 34.3 VERTEBRALS (direction of flow): Right Vertebral: Antegrade Left Vertebral: Antegrade Rhythm: Normal Grayscale images: [id number] atherosclerotic changes of the bilateral bifurcations IMPRESSION: No hemodynamically significant internal carotid artery stenosis on either side. Criteria for Assigning % of Stenosis / Diameter reduction (Estimation based on the indirect measurements of the internal carotid artery velocities (ICA PSV). 1. Normal (no stenosis)=ICA PSV < 125 cm/s: ratio < 2.0: ICA EDV<40 cm/s. 2. Less than 50% stenosis=ICA PSV < 125 cm/s: ratio < 2.0: ICA EDV<40 cm/s. 3. 50 to 69% stenosis=ICA PSV of 125 to 230 cm/s: ration 2.0 ? 4.0: ICA EDV 40-100 cm/s. 4. Greater than 70% stenosis to near occlusion= ICA PSV > 230 cm/s: ratio > 4.0: ICA EDV > 100 cm/s. 5. Near occlusion= ICA PSV velocities may be low or undetectable: variable ratio and ICA EDV. 6. Total occlusion=unable to detect flow.
--- NOTE | 2022-12-04 16:24 | US ---
EXAMINATION TYPE: US kidneys/renal and bladder DATE OF EXAM: 12/04/2022 COMPARISON: NONE CLINICAL INDICATION: Male, 77 years old with history of N189; CKD EXAM MEASUREMENTS: Right Kidney: 9.3 x 4.8 x 4.0 cm Left Kidney: 9.3 x 4.8 x cm Right Kidney: Benign cyst at the mid pole 1.1 x .9 x .8 cm . No hydronephrosis. Left Kidney: Benign exophytic cyst at the upper pole 1.2 x 1.4 x 1.5 cm. Bladder: Partial distention of the bladder limits evaluation. Bilateral Jets seen: yes IMPRESSION: 1. A benign cortical cyst in either kidney measuring up to 1.5 cm. 2. No hydronephrosis.
== END | disposition home or self-care (01) ==
LOC: RADUSWWP 12:04
PROVIDERS: ATTEND Family Medicine
DX: I73.9 Peripheral vascular disease, unspecified (principal); N18.9 Chronic kidney disease, unspecified; N28.1 Cyst of kidney, acquired
CPT/HCPCS: 76770; 93880

== ENCOUNTER → 2024-03-18 | Outpatient (CLI) | payer OTHER ==
--- NOTE | 2024-04-07 16:46 | MR ---
Patient: Edmar Chopra Ordering Physician: Unknown, Unknown ID: [id number] Phone, Pager: Phone: N /A Pager: N/A : [phone] Age/Gender: 78Y, M Primary Location: N/A Procedure: MR brain wo con Danny dy Date: 03/18/2024 12:46:03 PM EXAMINATION TYPE: MR brain wo con DATE OF EXAM: 03/20/2024 8:14 AM CLINICAL INDICATION: Dizziness and giddiness COMPARISON: CT brain 10/04/2018.. TECHNIQUE: Multi planar, multi sequence imaging was performed through the brain including: T1, T2, In version recovery, Diffusion weighted imaging, and gradient echo imaging. No gadolinium was given. FINDINGS: Encephalomalacia of the right basal ganglia/arce radiata as well as the right in parietal /occipital lobe left frontal lobe. Findings are new from 10/04/2018. Mild cerebral atrophy with propor tional dilation of ventricular system. Scattered foci of high T2 signal intensity are seen within t he periventricular white matter. Midline structures show no abnormality. Diffusion-weighted imaging s hows no evidence of restricted diffusion. The susceptibility weighted images do not reveal any eviden ce for micro-hemorrhage. The bone marrow signal is within normal limits. Paranasal sinuses and mastoid air cells: No significant paranasal sinus disease. Visualized orbits: Orbital contents are intact. IMPRESSION: 1. No injuries of the right basal ganglia/arce radiata and right occipital/parietal lobe. Findings are new from 10/04/2018. Correlate for history of prior strokes. No evidence of intracranial mass or a cute/subacute infarct. 2. Nonspecific white matter changes, likely secondary to small vessel ischemic disease.
== END | disposition home or self-care (01) ==
LOC: RADMRIMAIN 13:23
PROVIDERS: ATTEND Family Medicine
DX: G93.89 Other specified disorders of brain (principal); Z86.73 Personal history of transient ischemic attack (TIA), and cerebral infarction without residual deficits
CPT/HCPCS: 70551

== ENCOUNTER → 2024-04-18 | Outpatient (CLI) | payer OTHER ==
--- NOTE | 2024-04-18 13:51 | CT ---
EXAMINATION TYPE: CT abdomen wo con CT DLP: 372.20 mGycm, Automated exposure control for dose reduction was used. DATE OF EXAM: 04/18/2024 1:30 PM COMPARISON: 10/11/2019 CLINICAL INDICATION: Male, 78 years old with history of R10.9 abdominal pain; Upper abdominal pain, g as, family hx of stomach ca, pt concerned. TECHNIQUE: Axial CT abdomen wo con;Sagittal and coronal reformats were created on a separate worksta tion. Contrast used: mL of , (none if empty) Oral contrast used: without Oral Contrast (none if empty) FINDINGS: LOWER CHEST: Aortic valve consultations partially visualized. ABDOMEN LIVER: Unremarkable GALLBLADDER AND BILE DUCTS: Unremarkable. PANCREAS: Unremarkable. SPLEEN: Unremarkable. ADRENAL GLANDS: Unremarkable. KIDNEYS AND URETERS: No evidence of hydronephrosis or renal calculus. The ureters are unremarkable. STOMACH AND BOWEL: Small hiatal hernia. Few scattered colonic diverticula present. No evidence of bow el obstruction. Limited evaluation of the stomach without oral and IV contrast. Appendix is partially visualized similar as visualized is normal. PERITONEUM/RETROPERITONEUM: No evidence of pneumoperitoneum or free fluid. VASCULATURE: No evidence of aortic aneurysm. MUSCULOSKELETAL: No acute osseous abnormalities LYMPH NODES: No gross evidence for lymphadenopathy. SOFT TISSUE/ABDOMINAL WALL: Fat-containing umbilical hernia. IMPRESSION: 1. No evidence for acute abdominal process. 2. Limited evaluation of the stomach without IV and oral contrast no obvious mass identified. No lym phadenopathy identified. 3. Small hiatal hernia. 4. Colonic diverticulosis. [facility], , 04/18/2024 1:48 PM
== END | disposition home or self-care (01) ==
LOC: RADCTMAIN 12:47
PROVIDERS: ATTEND Family Medicine
DX: K44.9 Diaphragmatic hernia without obstruction or gangrene (principal); K57.30 Diverticulosis of large intestine without perforation or abscess without bleeding; R42 Dizziness and giddiness; Z80.0 Family history of malignant neoplasm of digestive organs
CPT/HCPCS: 74150